=== PATIENT | female | born 1945 | race African-American/Black ===

== ENCOUNTER 2016-08-14 09:55 | Inpatient (IN) | payer OTHER ==
[~2016-08-14] VITALS: Ht 154.9 cm; Wt 65.0 kg
--- NOTE | ~2016-08-14 | H ---
[facility] [place] [address] [place] [address] HISTORY AND PHYSICAL Name: WHIT MANRIQUEYON Lawrence Room #: 212-P ADM IN M.R.#: [id number] Admission: 08/14/16 Attend Phys: Yimi Goetz MD Discharge: Date of : 43 Report #: [id number] THIS REPORT FOR: //name// CC: Dhiraj Castaneda MD [facility] Sarita Goetz DATE OF SERVICE: 08/14/2016 CHIEF COMPLAINT: Shortness of breath. HISTORY OF PRESENT ILLNESS: The patient is a 70-year-old female with history of COPD, known coronary artery disease, peripheral vascular disease, hyperlipidemia, presented to the Emergency Room secondary to cough and shortness of breath. Symptoms have been ongoing over the last couple of weeks. The patient has been on doxycycline without much relief. She still actively smokes about 4-5 cigarettes a day. There is no history of any chest pain. Denies any fever or chills. She has mostly had cough with white sputum. No nausea, vomiting, abdominal pain. No recent weight loss or weight gain. PAST MEDICAL HISTORY: Significant for hypertension, hyperlipidemia, CABG of 2 vessel in 1986, peripheral vascular disease, PTSD, COPD, history of hysterectomy, coronary artery bypass in 1993, [place] in 1986, carotid endarterectomy in 12/2015, abdominal aortic bypass surgery in 2007. HOME MEDICATIONS: Reviewed, please look at the nursing documentation of home medications. ALLERGIES: She is allergic to MORENA INHIBITOR. Causes throat tightness. She has been taking Benicar here without much problem. She is also allergic to IV DYE AND PENICILLIN. SOCIAL HISTORY: She still smokes about 3-4 cigarettes a day. Denies alcohol abuse or illicit drug abuse. The patient lives with her brother. FAMILY HISTORY: Significant for hypertension and coronary artery disease. Brother has CAD. REVIEW OF SYSTEMS: CONSTITUTIONAL: No fever, chills, no history of any weight loss, weight gain. EYES: No change in vision. THROAT: Denies any sore throat. CARDIOVASCULAR: As above. RESPIRATORY: As above. GASTROINTESTINAL: No nausea, vomiting, abdominal pain. [facility] [address] [place] [address] HISTORY AND PHYSICAL Name: WHIT MANRIQUEYON Room #: 212-P [facility] IN [facility]#: [id number] Admission: 08/14/16 Attend Phys: Yimi Goetz MD Discharge: Date of : 43 Report #: [id number] GENITOURINARY: No dysuria, hematuria. SKIN: No rash. NEUROLOGIC: No focal numbness or weakness of the extremity. The 12-point review of system is negative other than the positive and negative dictated in the history of present illness and the review of system. PHYSICAL EXAMINATION: VITAL SIGNS: Reveal blood pressure 132/78, heart rate of 98 per minute, afebrile. GENERAL: The patient is awake and alert, not in acute respiratory distress. HEENT: Pupils equal, reactive to light, nonicteric, conjunctivae. NECK: Supple. There is a mildly elevated JVD. No bruits or lymphadenopathy. CARDIOVASCULAR SYSTEM: S1, S2, negative S3, no murmur. CHEST: Bilateral air entry present, bilateral basilar crackles noted. Reduced breath sounds on the bases. ABDOMEN: Soft, bowel sounds present, no mass, no organomegaly, no tenderness. PERIPHERY: +1 pedal edema. No calf tenderness. Dorsalis pedis 1+ to feeble. NEUROLOGICAL: No gross motor or sensory deficit. LABORATORY DATA: Reviewed. The patient stated that she had an echocardiogram done at Dr. Castaneda's office last month. She had last echocardiogram according to the system here in 2012. EF was normal at 55%. There was also hzkg-ik-nqbmkymv mitral regurgitation. Lactic acid 0.2, white count is 7.1, hemoglobin is 10.2, platelets 138. BUN and creatinine are within normal limit at 15 and 0.8. Potassium is 4.0. BNP is 2030. Troponin less than 0.04. Influenza antigen is negative. IMAGING: Chest x-ray showed bilateral increased density, likely bibasilar pneumonitis. EKG showed sinus rhythm, borderline short [place] interval, LVH. ASSESSMENT AND PLAN: 1. Acute respiratory insufficiency secondary to chronic obstructive pulmonary disease, slight bibasilar pneumonitis, possible congestive heart failure. 2. The patient will be continued on IV steroids, will titrate oxygen. We will also start her on levofloxacin, send sputum culture, sensitivity and adjust antibiotic as needed. 3. Chronic obstructive pulmonary disease exacerbation, will be continued on DuoNebs on IV steroids. 4. Congestive heart failure. The patient has received IV Lasix in the Emergency Room. We will continue with p.o. Lasix. The patient stated that she had an echocardiogram done at Dr. Castaneda's office last month. We will try to obtain that report. The patient will be continued on beta moise and an ARB. 5. Deep venous thrombosis prophylaxis, she will be on Lovenox for deep venous thrombosis prophylaxis. 6. Hypertension. The patient will be continued on her present home medications which include Norvasc, beta moise and ARB. [address] [address] HISTORY AND PHYSICAL Name: YON GANDARA Room #: 212-P [facility] IN M.R.#: [id number] Admission: 08/14/16 Attend Phys: Yimi Goetz MD Discharge: Date of : 43 Report #: [id number] 7. Tobacco use. The patient is strongly advised to stop smoking. 8. History of severe peripheral vascular disease and myocardial infarction in the past and history of coronary artery disease in the past. Treatment plan has been explained to the patient in detail. <ELECTRONICALLY SIGNED> By: Yimi Goetz MD 08/15/16 1134 1432 1909 Yimi Goetz MD /nt
--- NOTE | ~2016-08-14 | HC ---
[facility] [place] [place] [address] CONSULTATION Name: STEVE GANDARASIIgnacia Lawrence Room #: 200-I [facility] IN M.R.#: [id number] Admission: 08/14/16 Attend Phys: Yimi Goetz MD Discharge: 08/16/16 Date of : 44 Report #: [id number] THIS REPORT FOR: //name// CC: Sarita Goetz CARDIOLOGY CONSULTATION HISTORY OF PRESENT ILLNESS: The patient is a 70-year-old female, well known to myself and also patient of Dr. Sarita Pérez. She is admitted with some onset of shortness of breath and dyspnea, which had been progressively downhill. I have seen her recently and I saw her in the hospital in December prior to a carotid endarterectomy. She became progressively short of breath and found to have pneumonia and also was diuresed. Bypass surgery in 1986, peripheral vascular disease with a carotid stent, limited infarct, aortofemoral bypass in 2007. She denies any chest pain or anginal complaints. Cardiac catheterization was done in November of 2015. LAD and circumflex had mild disease. There was a distal lesion. Dominant right was occluded. The SVG to the right was occluded. The RICHARD was widely patent, but had not been utilized. Extensive collateralization of the septal perforators, LAD and circumflex to the PDA and the EF was normal. She has been maintained on Plavix, primidone, Bystolic, amlodipine, hydralazine, pravastatin, albuterol, aspirin and Benicar 40. PAST MEDICAL HISTORY: Positive for coronary artery disease with bypass and recent catheterization, as stated, carotid stent, bilateral renal stents, SFA was moderately diseased; aortic aneurysm, aortobiiliac graft; hypertension; diabetes; hypercholesterolemia; COPD; continued tobacco use; orthostatic hypotension; PTSD and hysterectomy. FAMILY HISTORY: Both parents and siblings with premature CAD. SOCIAL HISTORY: She is a bifn-zylq-f-day smoker. No alcohol use. Moderate caffeine. ALLERGIES: PENICILLIN, CONTRAST and MORENA INHIBITORS. LABORATORY DATA: Potassium 4.2, sodium 139 and creatinine 1.1. Liver function tests are normal. Lactate 0.6. GFR 59. Troponin is negative. BNP was 2.30. H and H are 9.9 and 29 and white count 11. Chest x-ray today shows diminished atelectasis and infiltrate in bilateral lower lobes. PHYSICAL EXAMINATION: GENERAL: She is pleasant and alert. She feels much better. She has been diuresed. VITAL SIGNS: Blood pressure 160/68, pulse 60s. HEENT: Eyes reveal no xanthelasmas. Pharynx is clear. NECK: Shows preserved upstrokes, without JVD or bruits. [facility] [address] [place] [address] CONSULTATION Name: YON GANDARA Room #: 200-I [facility] IN M.R.#: [id number] Admission: 08/14/16 Attend Phys: Yimi Goetz MD Discharge: 08/16/16 Date of : 43 Report #: [id number] LUNGS: Clear with a few diminished breath sounds, diminished in the right base. CARDIAC EXAMINATION: Regular rate and rhythm, S1, S2. Faint holosystolic murmur. ABDOMEN: Soft. No HSM or abdominal bruit. EXTREMITIES: Trace of edema. Pulses intact. There are diminished distal pulses, however. NEUROLOGIC: Nonfocal. SKIN: Warm and dry, without xanthoma or ulcer. MUSCULOSKELETAL: No gross joint deformity. ASSESSMENT: 1. Hypoxemia with pneumonia, resolving. 2. Component of acute bkgonlji-wz-nxdtsql heart failure, presumably diastolic heart failure. 3. Hypertension. 4. Hypercholesterolemia. 5. Coronary artery disease with prior bypass and noted only remain is chinik circulation. 6. Preserved ejection fraction. 7. Tobacco use. RECOMMENDATIONS AND PLAN: I agree she has responded nicely on antibiotics and diuretics. We will discharge on her home medications in addition to the diuretics and Lasix 40, potassium 20. We will follow up in 3 months with an echo Doppler, sooner if there is any change in her status. Fluid and sodium restrictions have been discussed. I agree with discharge today if her cardiovascular status is stable. <ELECTRONICALLY SIGNED> By: Dhiraj Castaneda MD, FACC 08/18/16 0936 0923 1030 Dhiraj Castaneda MD, FACC /nt
--- NOTE | ~2016-08-14 | EKG ---
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: harmony : 1945 Requested By: Yimi Goetz Order Number: [id number] MD: Néstor Roche Measurements Intervals [place] Rate: 76 P: 74 KS: 116 QRS: 43 QRSD: 96 T: 197 QT: 524 QTc: 590 Interpretive Statements Sinus rhythm Atrial premature complex Borderline short [place] interval Abnormal R-wave progression, early transition Nonspecific ST and T wave abnormality Prolonged QT interval Compared to ECG 12/10/2015 07:25:27 Atrial premature complex(es) now present T wave abnormality is present Prolonged QT interval now present Electronically Signed On 08-15-2016 14:38:05 [employer]LE[employer] ENTREPRENEUR MEDIA PERSONALITY by Néstor Roche [email or web address] <ELECTRONICALLY SIGNED> By: Néstor Roche MD, [facility] 08/15/16 1438 0950 0950 Néstor Roche MD, [facility] /EPI
--- NOTE | ~2016-08-14 | EKG ---
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: michael : 1945 Requested By: Dominic Steven Order Number: [id number] MD: Néstor Roche Measurements Intervals [place] Rate: 70 P: 77 [place]: 113 QRS: 27 QRSD: 91 T: QT: 440 QTc: 475 Interpretive Statements Sinus rhythm with short [place] interval LVH with secondary repolarization abnormality No previous ECGs available for comparison Electronically Signed On 08-16-2016 7:55:59 [facility]ICAL [facility]IST[facility] DERMATOLOGY by Néstor Roche [email or web address] <ELECTRONICALLY SIGNED> By: Néstor Roche MD, [facility] 08/16/16 0755 0957 Néstor Roche MD, [facility] /EPI
[~2016-08-14 09:55] MED LIST: ADULT LOW DOSE81 MG PO; ALBUTEROL2.5 MG/0.5 IH; ALBUTEROL2.5 MG/31 INH; ALEVE220 MG PO; ASPIRIN325 PO; ASPIRIN81 M2 PO; BENAZEPRIL HCL20 MG PO; BENICAR40 MG PO; BUPROPION; CATAPRES-TTS 20.2 MG TD; CLEOCIN HCL300 MG PO; CLONIDINE HCL0.2 M2 OR; DIOVAN 80 MG TA80 M1 PO; DOXYCYCLINE 10100 MG PO; FUROSEMIDE 40 M40 M1 PO; HYDRALAZINE 5050 M1 GT; HYDRALAZINE 5050 M1 PO; HYDRALAZINE 5050 MG PO; HYDROCODONE-AP1 EAC6 PO; IMDUR 60 MG TAB60 M1 PO; K-LOR20 MEQ PO; KEPPRA 500 MG500 MG PO; KEPPRA250 MG PO; KLOR-CON 10 ER10 MEQ PO; LORTAB 5 MG/5001 TA1 PO; MYSOLINE50 MG PO; NITROGLYCERIN0.4 MG SUBLING; NORVASC 5 MG TAB5 MG PO; NORVASC10 MG PO; OSELB75 PO; PINDOLOL10 MG PO; PINDOLOL5 MG PO; PLAVIX 75 MG TA75 M1 PO; PLAVIX PO; PRAVACHOL80 MG PO; PREDNISONE 10 M10 M1 PO; PREDNISONE 20 M20 M1 PO; PROAIR HFA8.5 GM INH; PROVENTIL; SIMVASTATIN80 MG PO; TOPROL XL50 MG PO; TRAZODONE 150150 M1 PO; TYLENOL325 MG PO; VITAMIN D 5050000 I1 PO; WELLBUTRIN 75 M75 M1 PO; ZOFRAN ODT4 MG PO
[2016-08-14 09:56] VITALS: BP 132/78
[2016-08-14] MEDS ORDERED: SPIRIVA RESPIMAT4 G1 IH (10:20)
[2016-08-14] MEDS ORDERED: ANORO ELLIPTA1 EACH IH (10:20)
[2016-08-14] MEDS ORDERED: DOXYCYCLINE 10100 MG PO (10:20)
[2016-08-14 10:37] LABS: ABSOLUTE NEUTROPHILS 3.6 thou/uL (1.4-8.2); BASOPHILS 1.3 % (0.0-2.0); EOSINOPHILS 10.6 % (0.0-3.0); HEMATOCRIT 29.6 % (37.0-47.0); HEMOGLOBIN 10.2 gm/dL (12.0-15.0); MCH 31.8 pg (26.0-34.0); MCHC 34.3 % (28.0-37.0); MCV 92.5 fL (80.0-100.0); MONOCYTES 6.1 % (1.0-8.0); PLATELET COUNT 138 thou/uL (150-400); RDW 14.3 % (10.5-14.5); WBC 7.1 thou/uL (4.0-11.0)
[2016-08-14 10:38] LABS: MANUAL DIFF NO
[2016-08-14 10:43] LABS: ANION GAP 7 mmol/L (7-16); BUN 15 mg/dL (7-18); CALCIUM 8.9 mg/dL (8.5-10.1); CHLORIDE 108 mmol/L (98-107); CO2 29 mmol/L (21-32); CREATININE 0.8 mg/dL (0.6-1.3); GLUCOSE 99 mg/dL (70-99); SODIUM 144 mmol/L (136-145)
[2016-08-14 10:56] LABS: NT-PRO BRAIN NAT PEPTIDE 2030 pg/mL (<300); TROPONIN-I < 0.04 ng/mL (<0.04-0.07)
[2016-08-14] MEDS ORDERED: BYSTOLIC 5 MG5 M1 PO (14:06)
[2016-08-14] MEDS ORDERED: ATROVENT HFA14 GM INH (14:07)
[2016-08-14] MEDS ORDERED: PINDOLOL5 MG PO (14:09)
[2016-08-14 15:32] VITALS: BP 204/74
[2016-08-14 19:23] VITALS: BP 207/85
[2016-08-14 21:17] VITALS: BP 176/54
[2016-08-14 22:53] LABS: URINE BILIRUBIN NEGATIVE (Negative); URINE BLOOD TRACE (Negative); URINE COLOR YELLOW; URINE GLUCOSE-RANDOM* NEGATIVE (Negative); URINE KETONES NEGATIVE (Negative); URINE NITRITE NEGATIVE (Negative); URINE PROTEIN (DIPSTICK) 2+ (Negative); URINE SPECIFIC GRAVITY 1.025 (1.003-1.035); URINE UROBILINOGEN 0.2 E.U./dl (0.2-1.0)
[2016-08-14 22:57] VITALS: BP 148/42
[2016-08-15 00:14] LABS: CASTS None Seen /LPF (None Seen); SQUAMOUS 4-10 Moderate /LPF (0-3); URINE RBC 3-10 Few /HPF (0-2); URINE WBC 0-5 Rare /HPF (0-5)
[2016-08-15 00:15] LABS: BACTERIA 1-9 Few /HPF (None Seen); CRYSTALS None Seen /LPF (None Seen)
[2016-08-15 04:15] VITALS: BP 163/62
[2016-08-15 04:34] LABS: ABSOLUTE NEUTROPHILS 3.8 thou/uL (1.4-8.2); BASOPHILS 0.2 % (0.0-2.0); HEMATOCRIT 28.8 % (37.0-47.0); LYMPHOCYTES 22.2 % (24.0-44.0); MCH 31.7 pg (26.0-34.0); MCHC 34.7 % (28.0-37.0); MCV 91.3 fL (80.0-100.0); MONOCYTES 2.4 % (1.0-8.0); PLATELET COUNT 124 thou/uL (150-400); POLYS 75.2 % (36.0-66.0); RBC 3.15 mil/uL (4.20-5.00); RDW 14.2 % (10.5-14.5); WBC 5.1 thou/uL (4.0-11.0)
[2016-08-15 04:42] LABS: MANUAL DIFF NO
[2016-08-15 04:52] LABS: ALBUMIN 2.8 g/dL (3.4-5.0); CALCIUM 8.7 mg/dL (8.5-10.1); CREATININE 1.1 mg/dL (0.6-1.3); MAGNESIUM 1.8 mg/dL (1.8-2.4); TOTAL BILIRUBIN 0.3 mg/dL (<0.1-1.0); TOTAL PROTEIN 6.1 g/dL (6.4-8.2)
[2016-08-15 08:30] VITALS: BP 177/62
[2016-08-15 11:53] VITALS: BP 173/66
[2016-08-15 17:40] VITALS: BP 166/61
[2016-08-15 19:59] VITALS: BP 178/65
[2016-08-16 04:05] LABS: ABSOLUTE NEUTROPHILS 9.1 thou/uL (1.4-8.2); BASOPHILS 0.1 % (0.0-2.0); HEMATOCRIT 29.1 % (37.0-47.0); HEMOGLOBIN 9.9 gm/dL (12.0-15.0); LYMPHOCYTES 11.7 % (24.0-44.0); MCH 31.3 pg (26.0-34.0); MCHC 33.9 % (28.0-37.0); MCV 92.3 fL (80.0-100.0); PLATELET COUNT 136 thou/uL (150-400); POLYS 82.2 % (36.0-66.0); RBC 3.15 mil/uL (4.20-5.00); RDW 13.9 % (10.5-14.5)
[2016-08-16 04:07] LABS: CALCIUM 8.9 mg/dL (8.5-10.1); CREATININE 1.1 mg/dL (0.6-1.3); MAGNESIUM 2.3 mg/dL (1.8-2.4); POTASSIUM 4.2 mmol/L (3.5-5.1)
[2016-08-16 04:21] VITALS: BP 144/55
[2016-08-16 04:33] LABS: MANUAL DIFF NO
[2016-08-16 07:25] VITALS: BP 159/67
[2016-08-16] MEDS ORDERED: NORVASC10 MG PO (11:09)
[2016-08-16] MEDS ORDERED: DOXYCYCLINE 10100 MG PO (11:09)
[2016-08-16] MEDS ORDERED: LASIX 40 MG TAB40 MG PO (11:09)
[2016-08-16] MEDS ORDERED: PREDNISONE 10 M10 MG PO (11:09)
[2016-08-16] MEDS ORDERED: ALBUTEROL2.5 MG/31 INH (11:09)
[2016-08-16] MEDS ORDERED: K-DUR 20 MEQ T20 MEQ PO (11:09)
[2016-08-16] MEDS ORDERED: LEVAQUIN 500 M500 M2 PO (11:14)
[2016-08-16 11:55] VITALS: BP 164/65
[2016-08-16 13:17] VITALS: BP 164/65
[2016-08-16 13:26] VITALS: BP 164/65
== END 2016-08-16 14:51 | disposition home or self-care (01) | DRG 177 ==
LOC: ER 09:55 → 2N 11:25 → EROBS 11:25 → 2N 15:34
PROVIDERS: Internal Medicine; Nurse Practitioner
DX: J15.6 Pneumonia due to other Gram-negative bacteria (principal); E43 Unspecified severe protein-calorie malnutrition; I50.43 Acute on chronic combined systolic (congestive) and diastolic (congestive) heart failure; J44.1 Chronic obstructive pulmonary disease with (acute) exacerbation; E11.51 Type 2 diabetes mellitus with diabetic peripheral angiopathy without gangrene; K21.9 Gastro-esophageal reflux disease without esophagitis; I25.10 Atherosclerotic heart disease of native coronary artery without angina pectoris; E78.00 Pure hypercholesterolemia, unspecified; F43.10 Post-traumatic stress disorder, unspecified; I11.0 Hypertensive heart disease with heart failure; F17.210 Nicotine dependence, cigarettes, uncomplicated; R06.89 Other abnormalities of breathing; I95.1 Orthostatic hypotension; E78.5 Hyperlipidemia, unspecified; Z95.5 Presence of coronary angioplasty implant and graft; Z68.27 Body mass index [BMI] 27.0-27.9, adult; Z79.899 Other long term (current) drug therapy; Z95.1 Presence of aortocoronary bypass graft; Z79.82 Long term (current) use of aspirin; Z90.710 Acquired absence of both cervix and uterus; I25.2 Old myocardial infarction; Z88.0 Allergy status to penicillin; Z91.041 Radiographic dye allergy status; Z82.49 Family history of ischemic heart disease and other diseases of the circulatory system
CPT/HCPCS: 10081

== ENCOUNTER 2017-01-04 05:29 | Inpatient (IN) | payer OTHER ==
[2016-12-31 12:02] LABS: HEMATOCRIT 34.1 % (37.0-47.0); MCH 32.2 pg (26.0-34.0); MCHC 35.3 g/dL (28.0-37.0); MCV 91.3 fL (80.0-100.0); RBC 3.74 mil/uL (4.20-5.00); RDW 13.8 % (10.5-14.5)
[2016-12-31 12:20] LABS: APTT 27.5 Seconds (24.5-32.8); PROTIME 10.4 Seconds (9.3-11.4)
[2016-12-31 12:22] LABS: ALBUMIN 3.5 g/dL (3.4-5.0); CALCIUM 9.1 mg/dL (8.5-10.1); POTASSIUM 3.7 mmol/L (3.5-5.1); TOTAL BILIRUBIN 0.3 mg/dL (<0.1-1.0); TOTAL PROTEIN 7.1 g/dL (6.4-8.2)
[2016-12-31 12:30] LABS: URINE BILIRUBIN NEGATIVE (Negative); URINE BLOOD NEGATIVE (Negative); URINE COLOR YELLOW; URINE GLUCOSE-RANDOM* NEGATIVE (Negative); URINE KETONES NEGATIVE (Negative); URINE LEUKOCYTES-REFLEX NEGATIVE (Negative); URINE PROTEIN (DIPSTICK) NEGATIVE (Negative); URINE UROBILINOGEN 0.2 E.U./dl (0.2-1.0)
[~2017-01-04] VITALS: Ht 154.9 cm; Wt 75.6 kg
[2017-01-04] VITALS (10 sets, daily range): BP systolic 108–151; BP diastolic 41–123
--- NOTE | ~2017-01-04 | HC ---
[facility] [place] [place] [address] CONSULTATION Name: STEVE GANDARASIIgnacia Lawrence Room #: 205-P [facility] IN M.R.#: [id number] Admission: 01/04/17 Attend Phys: Jasen Hoffman MD Discharge: 01/11/17 Date of : 43 Report #: [id number] THIS REPORT FOR: //name// CC: Jasen LariosArce DATE OF SERVICE: 01/08/2017 REFERRING PROVIDER: Yimi Goetz MD REASON FOR CONSULTATION: COPD exacerbation. CHIEF COMPLAINT: Shortness of breath. HISTORY OF PRESENT ILLNESS: Our group was asked to see this patient in consultation while hospitalized at [facility], very pleasant 71-year-old woman with a past pulmonary history significant for COPD, typically is on p.r.n. nebulizer treatments at home as well as p.r.n. albuterol underwent a left carotid endarterectomy on 01/04/2017. She states the next day postoperatively been having some increasing shortness of breath, some cough productive of thick clear sputum, no fevers, chills or sweats, some difficulty ambulating due to dyspnea, has been on some supplemental oxygen since that time, the patient notes that was feeling well prior to surgery, recently started on systemic steroids and bronchodilators. Postoperatively, continues to have above symptoms, recent x-rays have not shown any new infiltrates. ALLERGIES: Include CONTRAST, MORENA INHIBITORS AND PENICILLIN. PAST MEDICAL HISTORY: 1. COPD, severity not quantified, however, patient is typically only on p.r.n. medications as well as there is no requirement for supplemental oxygen. 2. History of coronary artery disease, status post coronary artery bypass grafting. 3. Peripheral vascular disease. 4. History of an abdominal aortic bypass surgery. SOCIAL HISTORY: The patient is an ex-smoker until the time of admission. No significant alcohol consumption. Currently retired. FAMILY HISTORY: Significant for hypertension, coronary artery disease. CURRENT INPATIENT MEDICATIONS: 1. Solu-Medrol 40 mg IV q. 6 hours, began today. 2. Torsemide 20 mg daily. 3. Protonix 40 mg daily. 4. Aspirin 81 mg daily. [facility] [address] [place] [address] CONSULTATION Name: YON GANDARA Room #: 205-P [facility] IN [facility].#: [id number] Admission: 01/04/17 Attend Phys: Jasen Hoffman MD Discharge: 01/11/17 Date of : 43 Report #: [id number] 5. Amlodipine 10 mg daily. 6. Primidone 100 mg at bedtime. 7. Atorvastatin 40 mg daily. 8. Hydralazine t.i.d. 9. Albuterol with Atrovent q.i.d. REVIEW OF SYSTEMS: CONSTITUTIONAL: No fevers, chills or sweats. ENT: No upper respiratory congestion, rhinorrhea, has no possible dysphagia recently. CARDIOVASCULAR: No chest pains or palpitations. GASTROINTESTINAL: No nausea, vomiting, diarrhea, constipation or abdominal pain. GENITOURINARY: No dysuria, no frequency. INTEGUMENT: Denies any rash. MUSCULOSKELETAL: No joint pains, some mild lower extremity edema noted. PHYSICAL EXAMINATION: VITAL SIGNS: Afebrile, pulse 80s, respiratory rate 18, blood pressure 108/58, oxygen saturation 96% on 2 liters. GENERAL: This is an obese, elderly woman in no distress. HEENT: Near edentulous mouth, Mallampati 2 airway, no thrush. NECK: Supple, no lymphadenopathy. LUNGS: Diminished, prolonged expiratory phase with some expiratory wheezes and rhonchi noted. CARDIOVASCULAR: Heart regular. No murmurs or gallops. ABDOMEN: Soft, nontender, no masses. EXTREMITIES: With 1+ edema. LABORATORY DATA: Chemistry profile normal except for a BUN and creatinine 42 and 1.6. White blood cell count 9000, hemoglobin 9, hematocrit 27, platelet count 112 and are normal. Chest x-ray performed yesterday morning, there was some cardiomegaly, but otherwise clear lung traylor. IMPRESSION: 1. Chronic obstructive pulmonary disease with acute exacerbation, may be having some ongoing dysphagia aggravating, unclear. Chest x-ray has been clear. 2. Recent left carotid endarterectomy. 3. Acute hypoxemic respiratory failure, likely can titrate off supplemental oxygen. 4. Ongoing tobacco abuse, just quitting less than 1 week ago. SUGGESTIONS: 1. Continue smoking cessation. 2. Bronchodilators. 3. DuoNebs q. [address] [address] CONSULTATION Name: YON GANDARA Room #: 205-P [facility] IN M.R.#: [id number] Admission: 01/04/17 Attend Phys: Jasen Hoffman MD Discharge: 01/11/17 Date of : 43 Report #: [id number] 4. Add inhaled budesonide. 5. Continue with systemic steroids with taper. 6. Guaifenesin. 7. Flutter valve. 8. EzPAP. 9. Add doxycycline 100 twice daily. 10. Additional recommendations to follow. Thank you for requesting our suggestions. <ELECTRONICALLY SIGNED> By: Cal Barreto MD 01/13/17 1133 1450 2234 Cal Barreto MD /nt
--- NOTE | ~2017-01-04 | H ---
[facility] [place] [address] HISTORY AND PHYSICAL Name: YON GANDARA Room #: 205-P ADM IN M.R.#: [id number] Admission: 01/04/17 Attend Phys: Jasen Hoffman MD Discharge: Date of : 43 Report #: [id number] THIS REPORT FOR: //name// For History and Physical, please see office documentation/handwritten note in the patient's medical record. By: 0904 Jasen Hoffman MD /
--- NOTE | ~2017-01-04 | HC ---
[facility] [place] [place] [address] CONSULTATION Name: WHIT MANRIQUEYON Melinda Room #: 205-P ADM IN M.R.#: [id number] Admission: 01/04/17 Attend Phys: Jasen Hoffman MD Discharge: Date of : 43 Report #: [id number] THIS REPORT FOR: //name// CC: Jasen Pérez HISTORY OF PRESENT ILLNESS: The patient is a 71-year-old female, well known to us, status post left carotid endarterectomy with significant stenosis and calcification of this. This was performed by Dr. Hoffman. She had some hypertensive and hypotensive issues overnight and some volume overload situation. She is improving now with IV Lasix. She is becoming less short of breath. She has had stable coronary disease and had been compliant with medications, doing fairly well until this postoperative issue. She has had a prior bypass surgery. Cardiac catheterization done a year ago revealed LAD and circumflex with mild disease. The dominant right was occluded. The SVG to the right was occluded and the RICHARD to the LAD was widely patent with extensive collateralization to the PDA. The ejection fraction was preserved. She has moderate peripheral vascular disease. There is jvjsr-xk-drbm aortic valve stenosis. She has been compliant with her medications. She has had no chest pain postoperatively. She is on albuterol, Benicar, pravastatin, primidone, hydralazine, aspirin, Ventolin, Lasix 40, Plavix 75 and Bystolic 5 are her home medications. PAST MEDICAL HISTORY: Positive for the bypass surgery, peripheral vascular disease, hypertension, hypercholesterolemia, COPD, continued tobacco use, renal artery stenosis, carotid stenosis, status post endarterectomy, hysterectomy and a prior carotid bypass on the right. Her aortoiliac bypass was in 2007, femoral artery endarterectomy in 2013 and renal stent in 2004. FAMILY HISTORY: Positive for mother and father and siblings for premature coronary disease. SOCIAL HISTORY: Current smoker, half to a whole pack a day. No significant alcohol or drug use. Two cups of coffee. No exercise. She is . ALLERGIES: CONTRAST DYE, PENICILLIN and MORENA INHIBITORS. LABORATORY DATA: H and H were 9.4 and 27.6, white count 9.6 and platelets 111,000. Chemistry reveals creatinine at 1.8, not far off her baseline; potassium 4.7 and sodium 140. PHYSICAL EXAMINATION: GENERAL: She is sitting up in a chair. She is mildly short of breath. VITAL SIGNS: Blood pressure is currently 146/84, pulse 60s and regular. HEENT: Eyes reveal xanthelasmas. Pharynx is clear. NECK: Shows preserved upstrokes on the right; the left is bandaged postop. LUNGS: Prolonged expiratory phase, few fine crackles in the bases. [facility] [address] [place] [address] CONSULTATION Name: YON GANDARA Room #: 205-P ADM IN M.R.#: [id number] Admission: 01/04/17 Attend Phys: Jasen Hoffman MD Discharge: Date of : 43 Report #: [id number] CARDIAC EXAMINATION: S1, S2 distant. Regular rate and rhythm. ABDOMEN: Slightly protuberant and nontender. EXTREMITIES: Reveal trace of edema. Distal pulses are diminished. NEUROLOGIC: Nonfocal. SKIN: Warm and dry, without xanthoma or ulcer. MUSCULOSKELETAL: Generalized arthritic changes. ASSESSMENT: 1. Status post carotid endarterectomy. 2. Acute systolic failure. Postoperatively, volume overload, resolving. 3. Chronic obstructive pulmonary disease, continued tobacco use. 4. Hypertension. 5. Hypercholesterolemia. 6. Coronary artery disease with prior coronary artery bypass last catheterization in 2015. Preserved left ventricular function. 7. Status post aortic bypass. 8. Prior covered renal stent. RECOMMENDATIONS AND PLAN: I agree with the Lasix, blood pressure control, reinstitute her medications, a.m. lab, incentive spirometer and monitor I's and O's. We will follow with you. Thank you for asking me to assist in the care of this patient. <ELECTRONICALLY SIGNED> By: Dhiraj Castaneda MD, FACC 01/10/17 1544 0859 1304 Dhiraj Castaneda MD, FACC /nt
--- NOTE | ~2017-01-04 | EKG ---
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 : 1945 Requested By: Yimi Goetz Order Number: [id number] MD: Néstor Roche Measurements Intervals [place] Rate: 59 P: -45 AR: 99 QRS: 37 QRSD: 93 T: 103 QT: 460 QTc: 456 Interpretive Statements Sinus or ectopic atrial rhythm Short AR interval Nonspecific T abnormalities, lateral leads Compared to ECG 08/15/2016 09:50:40 Ectopic atrial rhythm now present ST and T wave abnormality less pronounced Atrial premature complex(es) no longer present Electronically Signed On 01-06-2017 7:12:34 CDT by Néstor Roche [email or web address] <ELECTRONICALLY SIGNED> By: Néstor Roche MD, [facility] 01/06/17 0712 1 0832 Néstor Roche MD, [facility] /EPI
--- NOTE | ~2017-01-04 | S ---
[facility] [place] [address] SURGICAL PATH RPT PROCEDURE Name: YON GANDARA Room #: 245-P ADM IN M.R.#: [id number] Admission: 01/04/17 Date of : 43 Discharge: Report #: [id number] Path Case #: [id number] PATHOLOGY REPORT COLLECTION DATE: 01/04/2017 RECEIVED DATE: 01/04/2017 SUBMITTING PHYS: Dr. Jasen Hoffman OTHER PHYS: Dr. Sarita Pérez SPECIMEN(S) RECEIVED: A.Left carotid plaque * * * * * * * * * * * * FINAL DIAGNOSIS: Arterial plaque, left carotid, endarterectomy: - Calcified atheromatous plaque. PATHOLOGIST: Jung Pompa M.D. REPORT ELECTRONICALLY SIGNED BY: Jung Pompa M.D. DATE/TIME: 01/06/2017 10:51 * * * * * * * * * * * * GROSS PATHOLOGY: The specimen is received in formalin labeled "[place], left carotid plaque". Received is a tubular segment of partially calcified pale vu rubbery tissue measuring 3.1 cm in length by 1.1 cm in diameter. The specimen is submitted representatively in cassette A1, following light decalcification. (CAA; 01/05/2017) CLINICAL HISTORY: Carotid stenosis INITIAL CPT CODE(S): A; 83885, 98435 Professional services performed by [facility] at [facility] [address], [place] [address] Technical services performed by [facility] at [address] [place] [address], [address], [place] [address]. [facility] [address] [place] [address] SURGICAL PATH RPT PROCEDURE Name: YON GANDARA Room #: 245-P ADM IN M.R.#: [id number] Admission: 01/04/17 Date of : 43 Discharge: Report #: [id number] Path Case #: [id number] [address] PHONE: [phone] DIRECTOR: Alexis Calloway M.D. * * * END OF REPORT * * *
--- NOTE | ~2017-01-04 | HC ---
[facility] [place] [address] CONSULTATION Name: WHITQUAN MANRIQUEYON Lawrence Room #: 245-P ADM IN M.R.#: [id number] Admission: 01/04/17 Attend Phys: Jasen Hoffman MD Discharge: Date of : 43 Report #: [id number] THIS REPORT FOR: //name// CC: Jasen Pérez REASON FOR CONSULTATION: Consultation has been requested by Dr. Hoffman for management of hypertension and COPD. HISTORY OF PRESENT ILLNESS: The patient is a 71-year-old female with history of carotid stenosis, COPD and hypertension, who was admitted today for elective left carotid endarterectomy. The patient was recently diagnosed with left carotid stenosis and underwent left carotid endarterectomy earlier today. The patient is seen postoperatively in the ICU. The patient complains of pain in the left side of the neck. The patient also complains of mild nausea. No vomiting. The patient denies any chest pain or dizziness. No focal weakness or numbness of the extremity. The patient is well known to me from admission in August for COPD exacerbation. PAST MEDICAL HISTORY AND PAST SURGICAL HISTORY: Significant for hypertension, hyperlipidemia, coronary artery disease status post CABG, peripheral vascular disease, PTSD, COPD and hysterectomy. She had a coronary artery bypass in 1993, PR in 1986, carotid endarterectomy in 12/2015 and abdominal aortic bypass surgery in 2007. ALLERGIES: She is allergic to IODINE, MORENA INHIBITOR AND PENICILLIN. Please look at the nursing documentation. HOME MEDICATIONS: Reviewed. Please look at the nursing documentation. SOCIAL HISTORY: Smokes cigarettes. Denies alcohol abuse or other drug abuse. FAMILY HISTORY: Significant for hypertension and coronary artery disease. REVIEW OF SYSTEMS: Kind of limited from the patient because she is in pain and in distress. She complains of pain in the left side of the neck; otherwise, other review of systems has been negative. PHYSICAL EXAMINATION: VITAL SIGNS: Reviewed. Blood pressure is 126/45, heart rate of 50 per minute and afebrile. GENERAL: The patient is alert, follows command, not in acute respiratory distress. She is in mild distress because of the pain in the left side of her neck. EYES: Pupils equal and reactive to light. THROAT: Appears normal. [facility] [address] [place] [address] CONSULTATION Name: WHITYON THOMAS Room #: 245-P [facility] IN [facility]#: [id number] Admission: 01/04/17 Attend Phys: Jasen Hoffman MD Discharge: Date of : 43 Report #: [id number] NECK: No bruit. CARDIOVASCULAR: S1 and S2. No S3. CHEST: Bilateral air entry present. Clear on auscultation. ABDOMEN: Soft, bowel sounds present. No mass, no organomegaly, no tenderness. PERIPHERY: No pedal edema. No calf tenderness. Dorsalis pedis 1+. NEUROLOGICAL: He is able to move all 4 extremities. LABORATORY DATA: Reviewed. On 12/11, she had a white count that was 6.0, hemoglobin was 12 and platelet ere 146. PT and PTT on 12/11 are normal. Chemistry on 12/11 showed a BUN and creatinine of 17 and 1.0. AST and ALT are within normal limit. IMAGING: She had a chest x-ray done on 12/31 which showed borderline cardiomegaly. ASSESSMENT AND PLAN: 1. Hypertension. The patient will be continued on her present home medication. We will continue to monitor closely. 2. Chronic obstructive pulmonary disease. DuoNebs have been ordered as noted. Chronic obstructive pulmonary disease is presently stable. 3. Coronary artery disease status post coronary artery bypass graft, stable. 4. History of congestive heart failure secondary to diastolic dysfunction. We will reduce her IV fluid. We will discontinue IV fluid in the morning if the patient tolerates p.o. well. 5. Status post left carotid endarterectomy, postoperative course as per Dr. Hoffman. 6. We will repeat her labs in the morning and follow up with Dr. Hoffman. <ELECTRONICALLY SIGNED> By: Yimi Goetz MD 01/05/17 1314 1622 0212 Yimi Goetz MD /nt
--- NOTE | ~2017-01-04 | O ---
[facility] [place] [address] OPERATIVE REPORT Name: WHITQUAN MANRIQUEYON Lawrence Room #: 150-8 ADM IN M.R.#: [id number] Admission: 01/04/17 Attend Phys: Jasen Hoffman MD Discharge: Date of : 43 Report #: [id number] THIS REPORT FOR: //name// CC: Jasen Pérez DATE OF SERVICE: 01/04/2017 DATE OF SERVICE: 01/04/2017. PREOPERATIVE DIAGNOSIS: Left carotid artery stenosis. POSTOPERATIVE DIAGNOSIS: Left carotid artery stenosis. OPERATION: Left carotid endarterectomy with patch closure. SURGEON: Jasen Hoffman M.D. CUSTOMER EXPERIENCE MANAGER: [place]. ANESTHESIA: General. INDICATIONS: The patient is a 71-year-old with high-grade left carotid stenosis. The patient has multiple areas of peripheral arterial occlusive disease. The patient has had coronary artery bypass and aortobifemoral bypass, the patient also has lower extremity arterial occlusive disease. The right carotid has been stented in the past and appears to be satisfactory and the left carotid has a 90% lesion at the origin of the left internal carotid, but interestingly the anterior cerebral spill from the left side (both anterior cerebral ). No history of recent stroke or transient ischemic attack. FINDINGS AND TECHNIQUE: After general anesthesia was established, an oblique left neck incision was made. Common facial vein was divided. Common internal and external carotid arteries and the superior thyroid artery were identified and controlled. 10,000 units of heparin were given. The carotid vessels were occluded. Continuous electroencephalographic monitoring was performed during the operation and the carotid vessels were occluded. No EEG changes were noted. The carotid arteriotomy was performed. The endarterectomy was performed without creating a distal flap. Neointima was inspected and all loose debris was removed. Tacking sutures were placed at the transition zone. When the endarterectomy was deemed satisfactory, the arteriotomy was closed with running Prolene and thin [facility] [address] [place] [address] OPERATIVE REPORT Name: YON GANDARA Room #: 150-8 [facility] IN [facility].#: [id number] Admission: 01/04/17 Attend Phys: Jasen Hoffman MD Discharge: Date of : 43 Report #: [id number] walled pericardial patch. Prior to finishing the closure, the carotid vessels were backbled and the artery was irrigated with heparinized saline. Flow was established first through the external, then the internal carotid, 50 mg of protamine was given to reverse the heparin were given earlier. When hemostasis was satisfactory, drain was brought out through the bottom pole of the incision and the wound was irrigated with antibiotic solution and closed in the usual fashion. The patient was taken to the recovery area where the neurologic progress was monitored. All counts reported as correct. By: 1052 1256 Jasen Hoffman MD /nt
--- NOTE | ~2017-01-04 | EKG ---
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 RUBIO : 1945 Requested By: Meenakshi Dixon Order Number: [id number] MD: Yonatan Farris Measurements Intervals [place] Rate: 84 P: 79 PA: 90 QRS: 36 QRSD: 90 T: 219 QT: 330 QTc: 391 Interpretive Statements Sinus rhythm Short PA interval Nonspecific repol abnormality, diffuse leads Compared to ECG 01/05/2017 08:32:40 Early repolarization now present Ectopic atrial rhythm no longer present T-wave abnormality no longer present Electronically Signed On 01-06-2017 20:55:39 CDT by Yonatan Farris [email or web address] <ELECTRONICALLY SIGNED> By: Yonatan Farris MD 01/06/17 2055 01 01 Yonatan Farris MD /EPI
--- NOTE | ~2017-01-04 | HC ---
[facility] [place] [address] CONSULTATION Name: WHIT YON MANRIQUE Room #: 205-P ADM IN M.R.#: [id number] Admission: 01/04/17 Attend Phys: Jasen Hoffman MD Discharge: Date of : 43 Report #: [id number] THIS REPORT FOR: //name// CC: Jasen Pérez DATE OF SERVICE: 01/05/2017 NEPHROLOGY CONSULTATION REPORT DATE OF ADMISSION: 01/04/2017. DATE OF SERVICE: 01/05/2017. ATTENDING PHYSICIAN: Jasen Hoffman MD REASON FOR CONSULTATION: Elevated creatinine. HISTORY OF PRESENT ILLNESS: This 71-year-old patient was admitted for left carotid endarterectomy, which was performed yesterday. Blood pressures were kept low with a Cardene drip per protocol. This patient normally runs difficult and high blood pressures. Her baseline creatinine is 1, it evert to 1.8 and stayed at 1.8 overnight. She was initially given IV fluids. She did become somewhat short of breath with shallow respirations. She has rather severe COPD. She is now seen in consultation. She is having some minimal dyspnea earlier, which seems to have resolved. PAST MEDICAL HISTORY: Very bad peripheral arterial disease for many years. She has had previous abdominal aortic aneurysms open surgery in 2007. She has had a previous right carotid endarterectomy in December 2015, coronary bypass in 1993, and now the left carotid endarterectomy for a 90% lesion. She also has a history of significant hypertension, COPD and a prior hysterectomy. ALLERGIES: Reportedly to MORENA INHIBITORS AND PENICILLIN, details unknown. SOCIAL HISTORY: She is a continued ongoing cigarette smoker. FAMILY HISTORY: Positive for hypertension and coronary disease. REVIEW OF SYSTEMS: GENERAL: She is feeling poorly. She has developed back pain after the surgery. EYES: Her visions are okay. ENT: Hearing okay and swallows okay. ENDOCRINE: No diabetes. RESPIRATORY: Easily short-winded, chronic COPD. CARDIAC: Previous bypass surgery, no recent angina or arrhythmias. [facility] [address] [place] [address] CONSULTATION Name: WHIT MANRIQUE,YON Melinda Room #: [facility] IN ..#: [id number] Admission: 01/04/17 Attend Phys: Jasen Hoffman MD Discharge: Date of : 43 Report #: [id number] GASTROINTESTINAL: Appetite is a little bit poor this morning. GENITOURINARY: She has had good urination without dysuria or hematuria or history of renal stones. NEUROLOGIC: No seizure, syncope or stroke. PSYCHIATRIC: Denies depression or anxiety. HOME MEDICATIONS: As listed include AccuNeb inhaler, ProAir inhaler, amlodipine 10 mg daily, aspirin 81 mg daily, Plavix 75 mg daily, furosemide 40 mg daily, hydralazine 50 mg t.i.d., Bystolic 5 mg daily, Benicar 40 mg daily, potassium 20 mEq once daily, Pravachol 80 mg daily, primidone 50 mg daily. PHYSICAL EXAMINATION: VITAL SIGNS: This is an ill-appearing woman, in some distress with back pain, breathing shallow. SKIN: Unremarkable. SKELETAL: Well developed, well nourished, nonobese. HEENT: Extraocular movements full. Vision intact. Hearing intact. Mucous membranes slightly dry. NECK: Supple. A dressing over the left carotid area. CHEST: Diminished breath sounds with fine crackles at both lung bases. HEART: Regular but distant. ABDOMEN: Soft and nontender. EXTREMITIES: No edema. Peripheral pulses are diminished. LABORATORY DATA: Hemoglobin is 9.4, platelets are 111. Sodium 140, potassium 4.7, chloride 109, bicarbonate 21, creatinine 1.8, BUN 32. Urinalysis is remote, urine creatinine are pending. ASSESSMENT AND PLAN: 1. Elevated creatinine. Her creatinine is up. This appears to be prerenal at this time. Urine creatinine are pending. Gentle IV fluids will be continued. Chest x-ray did not show any failure. She did get a dose of Lasix. We will hold off on further Lasix at this time. Blood pressure being controlled with a Cardene drip, diastolic blood pressures are very, very low. Renal perfusion compromised thereby, particularly earlier on, and hopefully, we can appreciate renal perfusion by allowing the blood pressures come up a little bit. Holding her home antihypertensives with some gentle IV fluids, and her renal function will pretty well turn around. 2. Status post left carotid endarterectomy. 3. Difficult hypertension. 4. Severe chronic obstructive pulmonary disease. [address] [address] CONSULTATION Name: YON GANDARA Room #: 205-P [facility] IN M.R.#: [id number] Admission: 01/04/17 Attend Phys: Jasen Hoffman MD Discharge: Date of : 43 Report #: [id number] 5. Severe peripheral arterial disease. 6. Previous coronary bypass. <ELECTRONICALLY SIGNED> By: David Ross MD 01/10/17 1012 0855 1826 Dhiraj Winslow MD /nt
[~2017-01-04 05:29] MED LIST changes: +AMLODIPINE BESY10 MG PO; +ANORO ELLIPTA1 EACH IH; +ASPIR 8181 MG PO; +ATROVENT HFA14 GM INH; +BYSTOLIC 5 MG5 M1 PO; +K-DUR 20 MEQ T20 MEQ PO; +LASIX 40 MG TAB40 M2 PO; +LASIX 40 MG TAB40 MG PO; +LEVAQUIN 500 M500 M2 PO; +POTASSIUM20 PO; +PREDNISONE 10 M10 MG PO; +SPIRIVA RESPIMAT4 G1 IH
[2017-01-04 19:52] LABS: HEMATOCRIT 29.8 % (37.0-47.0); HEMOGLOBIN 10.4 gm/dL (12.0-15.0); MCH 32.2 pg (26.0-34.0); MCHC 34.7 g/dL (28.0-37.0); MCV 92.6 fL (80.0-100.0); RBC 3.22 mil/uL (4.20-5.00); RDW 14.2 % (10.5-14.5); WBC 10.4 thou/uL (4.0-11.0)
[2017-01-04 20:02] LABS: CALCIUM 7.9 mg/dL (8.5-10.1); CREATININE 1.8 mg/dL (0.6-1.0); POTASSIUM 5.2 mmol/L (3.5-5.1)
[2017-01-05] VITALS (22 sets, daily range): BP systolic 103–173; BP diastolic 41–127
[2017-01-05 07:19] LABS: ABSOLUTE NEUTROPHILS 6.9 thou/uL (1.4-8.2); BASOPHILS 0.1 % (0.0-2.0); EOSINOPHILS 0.2 % (0.0-3.0); HEMATOCRIT 27.6 % (37.0-47.0); HEMOGLOBIN 9.4 gm/dL (12.0-15.0); LYMPHOCYTES 18.8 % (24.0-44.0); MCH 31.8 pg (26.0-34.0); MCHC 34.1 g/dL (28.0-37.0); MCV 93.3 fL (80.0-100.0); MONOCYTES 9.3 % (1.0-8.0); PLATELET COUNT 111 thou/uL (150-400); POLYS 71.6 % (36.0-66.0); RBC 2.96 mil/uL (4.20-5.00); RDW 14.2 % (10.5-14.5); WBC 9.6 thou/uL (4.0-11.0)
[2017-01-05 07:22] LABS: MANUAL DIFF NO
[2017-01-05 07:30] LABS: CALCIUM 7.4 mg/dL (8.5-10.1); CREATININE 1.8 mg/dL (0.6-1.0); MAGNESIUM 1.6 mg/dL (1.8-2.4); POTASSIUM 4.7 mmol/L (3.5-5.1)
[2017-01-06] VITALS (19 sets, daily range): BP systolic 134–185; BP diastolic 42–136
[2017-01-06 03:08] LABS: ABSOLUTE NEUTROPHILS 6.8 thou/uL (1.4-8.2); BASOPHILS 0.2 % (0.0-2.0); HEMATOCRIT 25.6 % (37.0-47.0); HEMOGLOBIN 8.8 gm/dL (12.0-15.0); LYMPHOCYTES 11.5 % (24.0-44.0); MCH 32.1 pg (26.0-34.0); MCHC 34.5 g/dL (28.0-37.0); MCV 93.1 fL (80.0-100.0); MONOCYTES 2.3 % (1.0-8.0); PLATELET COUNT 89 thou/uL (150-400); RBC 2.75 mil/uL (4.20-5.00); RDW 14.2 % (10.5-14.5); WBC 7.9 thou/uL (4.0-11.0)
[2017-01-06 03:22] LABS: ALBUMIN 2.7 g/dL (3.4-5.0); CALCIUM 7.1 mg/dL (8.5-10.1); CREATININE 1.8 mg/dL (0.6-1.0); MAGNESIUM 1.8 mg/dL (1.8-2.4); PHOSPHORUS 3.5 mg/dL (2.5-4.9); POTASSIUM 4.4 mmol/L (3.5-5.1)
[2017-01-06 03:36] LABS: MANUAL DIFF NO
[2017-01-07 00:28] VITALS: BP 155/54
[2017-01-07 04:03] VITALS: BP 157/52
[2017-01-07 08:14] LABS: HEMATOCRIT 27.5 % (37.0-47.0); HEMOGLOBIN 9.3 gm/dL (12.0-15.0); MCH 31.8 pg (26.0-34.0); MCHC 33.9 g/dL (28.0-37.0); MCV 93.8 fL (80.0-100.0); RBC 2.93 mil/uL (4.20-5.00); RDW 14.3 % (10.5-14.5); WBC 11.4 thou/uL (4.0-11.0)
[2017-01-07 08:15] VITALS: BP 156/53
[2017-01-07 08:26] LABS: ALBUMIN 2.9 g/dL (3.4-5.0); CALCIUM 7.9 mg/dL (8.5-10.1); CREATININE 1.5 mg/dL (0.6-1.0); PHOSPHORUS 3.2 mg/dL (2.5-4.9); POTASSIUM 4.3 mmol/L (3.5-5.1)
[2017-01-07 12:16] VITALS: BP 155/56
[2017-01-07 16:08] VITALS: BP 155/80
[2017-01-07 19:56] VITALS: BP 155/50
[2017-01-08 03:34] VITALS: BP 156/55
[2017-01-08 03:52] LABS: ABSOLUTE NEUTROPHILS 7.1 thou/uL (1.4-8.2); HEMATOCRIT 26.5 % (37.0-47.0); HEMOGLOBIN 9.1 gm/dL (12.0-15.0); LYMPHOCYTES 13.2 % (24.0-44.0); MCH 31.9 pg (26.0-34.0); MCHC 34.4 g/dL (28.0-37.0); MCV 92.8 fL (80.0-100.0); MONOCYTES 8.2 % (1.0-8.0); PLATELET COUNT 112 thou/uL (150-400); POLYS 78.6 % (36.0-66.0); RBC 2.86 mil/uL (4.20-5.00); RDW 14.5 % (10.5-14.5)
[2017-01-08 03:54] LABS: MANUAL DIFF NO
[2017-01-08 04:03] LABS: ALBUMIN 2.8 g/dL (3.4-5.0); CREATININE 1.6 mg/dL (0.6-1.0); PHOSPHORUS 2.8 mg/dL (2.5-4.9); POTASSIUM 4.2 mmol/L (3.5-5.1)
[2017-01-08 08:00] VITALS: BP 153/49
[2017-01-08 12:00] VITALS: BP 180/58
[2017-01-08 16:00] VITALS: BP 169/51
[2017-01-08 19:29] VITALS: BP 157/55
[2017-01-09 03:33] VITALS: BP 158/55
[2017-01-09 05:01] LABS: ALBUMIN 2.9 g/dL (3.4-5.0); CALCIUM 8.7 mg/dL (8.5-10.1); CREATININE 1.5 mg/dL (0.6-1.0); PHOSPHORUS 3.8 mg/dL (2.5-4.9); POTASSIUM 4.4 mmol/L (3.5-5.1)
[2017-01-09 08:45] VITALS: BP 173/68
[2017-01-09 13:20] VITALS: BP 165/60
[2017-01-09 18:05] VITALS: BP 159/66
[2017-01-09 19:47] VITALS: BP 160/51
[2017-01-10 04:12] VITALS: BP 175/55
[2017-01-10 04:35] LABS: ABSOLUTE NEUTROPHILS 7.6 thou/uL (1.4-8.2); BASOPHILS 0.1 % (0.0-2.0); HEMATOCRIT 28.8 % (37.0-47.0); LYMPHOCYTES 14.4 % (24.0-44.0); MCH 32.1 pg (26.0-34.0); MCHC 34.6 g/dL (28.0-37.0); MCV 92.6 fL (80.0-100.0); MONOCYTES 5.4 % (1.0-8.0); PLATELET COUNT 125 thou/uL (150-400); POLYS 80.1 % (36.0-66.0); RBC 3.11 mil/uL (4.20-5.00); RDW 13.9 % (10.5-14.5); WBC 9.5 thou/uL (4.0-11.0)
[2017-01-10 04:42] LABS: MANUAL DIFF NO
[2017-01-10 04:56] LABS: CALCIUM 9.1 mg/dL (8.5-10.1); CREATININE 1.5 mg/dL (0.6-1.0); POTASSIUM 3.8 mmol/L (3.5-5.1)
[2017-01-10 08:50] VITALS: BP 160/61
[2017-01-10 13:13] VITALS: BP 188/68
[2017-01-10 14:19] VITALS: BP 177/60
[2017-01-10 19:58] VITALS: BP 172/63
[2017-01-11] VITALS (7 sets, daily range): BP systolic 147–171; BP diastolic 56–98
[2017-01-11 03:49] LABS: HEMATOCRIT 32.5 % (37.0-47.0); HEMOGLOBIN 11.1 gm/dL (12.0-15.0); MCHC 34.3 g/dL (28.0-37.0); MCV 93.5 fL (80.0-100.0); RBC 3.47 mil/uL (4.20-5.00); RDW 13.6 % (10.5-14.5); WBC 12.8 thou/uL (4.0-11.0)
[2017-01-11 04:05] LABS: ALBUMIN 2.9 g/dL (3.4-5.0); CALCIUM 9.3 mg/dL (8.5-10.1); CREATININE 1.5 mg/dL (0.6-1.0); PHOSPHORUS 4.8 mg/dL (2.5-4.9); POTASSIUM 3.8 mmol/L (3.5-5.1)
[2017-01-11] MEDS ORDERED: BYSTOLIC10 MG PO (14:19)
[2017-01-11] MEDS ORDERED: PANTOPRAZOLE SO40 M1 PO (14:32)
== END 2017-01-11 16:10 | disposition home or self-care (01) | DRG 37 ==
LOC: ICU 05:29 → TBA 05:29 → ICU 06:02 → 2N 01-06 16:22
PROVIDERS: Internal Medicine; Internal Medicine Nephrology; Nurse Practitioner Adult Health; Physician Assistant; Surgery Vascular Surgery
PROC: 03UN0JZ Supplement Left External Carotid Artery with Synthetic Substitute, Open Approach (ICD-10-PCS; principal; 2017-01-04)
PROC: 03CN0ZZ Extirpation of Matter from Left External Carotid Artery, Open Approach (ICD-10-PCS; principal; 2017-01-04)
DX: I65.22 Occlusion and stenosis of left carotid artery (principal); N17.0 Acute kidney failure with tubular necrosis; J96.91 Respiratory failure, unspecified with hypoxia; I50.43 Acute on chronic combined systolic (congestive) and diastolic (congestive) heart failure; J44.1 Chronic obstructive pulmonary disease with (acute) exacerbation; I13.0 Hypertensive heart and chronic kidney disease with heart failure and stage 1 through stage 4 chronic kidney disease, or unspecified chronic kidney disease; E78.5 Hyperlipidemia, unspecified; I25.10 Atherosclerotic heart disease of native coronary artery without angina pectoris; F43.10 Post-traumatic stress disorder, unspecified; E78.00 Pure hypercholesterolemia, unspecified; N18.9 Chronic kidney disease, unspecified; D69.6 Thrombocytopenia, unspecified; F17.210 Nicotine dependence, cigarettes, uncomplicated; E11.51 Type 2 diabetes mellitus with diabetic peripheral angiopathy without gangrene; E11.22 Type 2 diabetes mellitus with diabetic chronic kidney disease; Z90.710 Acquired absence of both cervix and uterus; I25.2 Old myocardial infarction; Z88.0 Allergy status to penicillin; Z91.041 Radiographic dye allergy status; Z95.1 Presence of aortocoronary bypass graft; Z88.8 Allergy status to other drugs, medicaments and biological substances; Z82.49 Family history of ischemic heart disease and other diseases of the circulatory system
CPT/HCPCS: 10078; 10081; 48888; 50010; 50101; 50386; 50417; 50455; 51301; 51751; 52279; 54118; 56524; 56526; 56527; 56528; 56531; 56534; 62110; 62900; 65020; 65040; 70005

== ENCOUNTER → 2017-01-18 | Outpatient (CLI) | payer OTHER ==
[~2017-01-18] MED LIST changes: +BYSTOLIC10 MG PO; +PANTOPRAZOLE SO40 M1 PO
== END ==
LOC: ULTRA 15:35
DX: M79.661 Pain in right lower leg (principal); M79.89 Other specified soft tissue disorders

== ENCOUNTER → 2019-09-07 | Outpatient (CLI) | payer OTHER | LOC: SJCVC 13:15 | DX: R94.31 Abnormal electrocardiogram [ECG] [EKG] (principal); I25.810 Atherosclerosis of coronary artery bypass graft(s) without angina pectoris; E11.22 Type 2 diabetes mellitus with diabetic chronic kidney disease; I13.0 Hypertensive heart and chronic kidney disease with heart failure and stage 1 through stage 4 chronic kidney disease, or unspecified chronic kidney disease; I50.9 Heart failure, unspecified; N18.3 Chronic kidney disease, stage 3 (moderate); E78.00 Pure hypercholesterolemia, unspecified; I65.23 Occlusion and stenosis of bilateral carotid arteries; I71.4 Abdominal aortic aneurysm, without rupture; I73.9 Peripheral vascular disease, unspecified; J44.9 Chronic obstructive pulmonary disease, unspecified; I70.1 Atherosclerosis of renal artery; F17.200 Nicotine dependence, unspecified, uncomplicated; Z79.899 Other long term (current) drug therapy ==

== ENCOUNTER 2020-05-12 07:09 | Emergency (ER) | payer OTHER ==
[~2020-05-12] VITALS: Ht 154.9 cm; Wt 61.2 kg
[2020-05-12 07:10] VITALS: BP 199/55
[2020-05-12] MEDS ORDERED: IBUPROFEN 400400 M1 PO (08:24)
== END 2020-05-12 08:32 | disposition home or self-care (01) ==
LOC: ER 07:09
DX: M72.2 Plantar fascial fibromatosis (principal); I10 Essential (primary) hypertension; E78.00 Pure hypercholesterolemia, unspecified; J44.9 Chronic obstructive pulmonary disease, unspecified; I73.9 Peripheral vascular disease, unspecified; F17.210 Nicotine dependence, cigarettes, uncomplicated; Z98.61 Coronary angioplasty status; Z90.711 Acquired absence of uterus with remaining cervical stump; Z79.899 Other long term (current) drug therapy; Z79.82 Long term (current) use of aspirin; Z88.8 Allergy status to other drugs, medicaments and biological substances; Z88.0 Allergy status to penicillin; Z91.041 Radiographic dye allergy status

== ENCOUNTER → 2020-06-23 | Outpatient (CLI) | payer OTHER ==
[~2020-06-23] MED LIST changes: +IBUPROFEN 400400 M1 PO
== END ==
LOC: SJCVCIMAG 07:34
PROVIDERS: ATTEND Internal Medicine Cardiovascular Disease
DX: I25.10 Atherosclerotic heart disease of native coronary artery without angina pectoris (principal); I49.3 Ventricular premature depolarization; E78.5 Hyperlipidemia, unspecified; I10 Essential (primary) hypertension; E11.9 Type 2 diabetes mellitus without complications; J44.9 Chronic obstructive pulmonary disease, unspecified; F17.200 Nicotine dependence, unspecified, uncomplicated; Z95.828 Presence of other vascular implants and grafts; Z79.899 Other long term (current) drug therapy

== ENCOUNTER → 2020-07-25 | Outpatient (CLI) | payer OTHER | LOC: SJCVCIMAG 07-10 07:43 | PROVIDERS: ATTEND Internal Medicine Cardiovascular Disease | DX: I71.4 Abdominal aortic aneurysm, without rupture (principal); I70.202 Unspecified atherosclerosis of native arteries of extremities, left leg; R94.31 Abnormal electrocardiogram [ECG] [EKG]; I49.3 Ventricular premature depolarization; I25.810 Atherosclerosis of coronary artery bypass graft(s) without angina pectoris; I77.9 Disorder of arteries and arterioles, unspecified; I70.1 Atherosclerosis of renal artery; E78.00 Pure hypercholesterolemia, unspecified; I13.0 Hypertensive heart and chronic kidney disease with heart failure and stage 1 through stage 4 chronic kidney disease, or unspecified chronic kidney disease; N18.30 Chronic kidney disease, stage 3 unspecified; I50.9 Heart failure, unspecified; F17.210 Nicotine dependence, cigarettes, uncomplicated; Z95.1 Presence of aortocoronary bypass graft; Z95.828 Presence of other vascular implants and grafts; Z98.890 Other specified postprocedural states; Z79.899 Other long term (current) drug therapy ==

== ENCOUNTER → 2020-11-26 | Outpatient (CLI) | payer OTHER | LOC: SJCVCIMAG 14:27 | PROVIDERS: ATTEND Internal Medicine Cardiovascular Disease | DX: I70.202 Unspecified atherosclerosis of native arteries of extremities, left leg (principal) ==

== ENCOUNTER 2021-01-08 10:29 | Emergency (ER) | payer OTHER ==
[~2021-01-08] VITALS: Ht 154.9 cm; Wt 59.0 kg
[2021-01-08] MEDS ORDERED: COLCHICINE0.6 M1 PO (12:12)
[2021-01-08] MEDS ORDERED: NORCO5 PO ×2 (12:12→12:23)
[2021-01-08 12:33] VITALS: BP 165/45
== END 2021-01-08 12:31 | disposition home or self-care (01) ==
LOC: ER 10:29
DX: M10.072 Idiopathic gout, left ankle and foot (principal); M13.872 Other specified arthritis, left ankle and foot; F17.210 Nicotine dependence, cigarettes, uncomplicated; I10 Essential (primary) hypertension; E78.00 Pure hypercholesterolemia, unspecified; J44.9 Chronic obstructive pulmonary disease, unspecified; Z90.710 Acquired absence of both cervix and uterus; Z88.0 Allergy status to penicillin; Z88.8 Allergy status to other drugs, medicaments and biological substances; Z91.041 Radiographic dye allergy status

== ENCOUNTER → 2021-02-27 | Outpatient (CLI) | payer OTHER ==
[~2021-02-27] MED LIST changes: +COLCHICINE0.6 M1 PO; +NORCO5 PO
== END ==
LOC: SJCVCIMAG 08:48
PROVIDERS: ATTEND Internal Medicine Cardiovascular Disease
DX: T82.855A Stenosis of coronary artery stent, initial encounter (principal); I65.22 Occlusion and stenosis of left carotid artery; I25.810 Atherosclerosis of coronary artery bypass graft(s) without angina pectoris; R94.31 Abnormal electrocardiogram [ECG] [EKG]; E78.00 Pure hypercholesterolemia, unspecified; I73.9 Peripheral vascular disease, unspecified; I77.9 Disorder of arteries and arterioles, unspecified; I70.1 Atherosclerosis of renal artery; I13.0 Hypertensive heart and chronic kidney disease with heart failure and stage 1 through stage 4 chronic kidney disease, or unspecified chronic kidney disease; I50.9 Heart failure, unspecified; N18.30 Chronic kidney disease, stage 3 unspecified; J44.9 Chronic obstructive pulmonary disease, unspecified; F17.210 Nicotine dependence, cigarettes, uncomplicated; Z95.1 Presence of aortocoronary bypass graft; Z90.710 Acquired absence of both cervix and uterus; Z95.5 Presence of coronary angioplasty implant and graft; Z88.0 Allergy status to penicillin; Z88.8 Allergy status to other drugs, medicaments and biological substances; Z79.899 Other long term (current) drug therapy; Z82.49 Family history of ischemic heart disease and other diseases of the circulatory system; Y83.8 Other surgical procedures as the cause of abnormal reaction of the patient, or of later complication, without mention of misadventure at the time of the procedure; Y92.89 Other specified places as the place of occurrence of the external cause

== ENCOUNTER → 2021-09-17 | Outpatient (CLI) | payer OTHER | LOC: SJCVC 14:55 | PROVIDERS: ATTEND Internal Medicine Cardiovascular Disease | DX: R94.31 Abnormal electrocardiogram [ECG] [EKG] (principal); I25.810 Atherosclerosis of coronary artery bypass graft(s) without angina pectoris; I13.0 Hypertensive heart and chronic kidney disease with heart failure and stage 1 through stage 4 chronic kidney disease, or unspecified chronic kidney disease; N18.30 Chronic kidney disease, stage 3 unspecified; I73.9 Peripheral vascular disease, unspecified; E78.00 Pure hypercholesterolemia, unspecified; I65.23 Occlusion and stenosis of bilateral carotid arteries; I71.4 Abdominal aortic aneurysm, without rupture; I70.1 Atherosclerosis of renal artery; F17.210 Nicotine dependence, cigarettes, uncomplicated; J44.9 Chronic obstructive pulmonary disease, unspecified; M10.9 Gout, unspecified; Z79.899 Other long term (current) drug therapy; Z88.0 Allergy status to penicillin; Z88.8 Allergy status to other drugs, medicaments and biological substances; Z95.5 Presence of coronary angioplasty implant and graft; Z95.1 Presence of aortocoronary bypass graft; Z95.818 Presence of other cardiac implants and grafts; Z82.49 Family history of ischemic heart disease and other diseases of the circulatory system ==